=== PATIENT | male | born 2000 | race Caucasian/White ===

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

== ENCOUNTER 2021-06-25 17:48 | Emergency (ER) | payer SELFPAY ==
[2021-06-25 19:42] LABS: HEMOGLOBIN 15.1 gm/dl (14.0-17.5); RED BLOOD COUNT 4.85 M/UL (4.20-5.50); WHITE BLOOD COUNT 8.1 K/UL (4.5-11.0)
[2021-06-25 20:08] LABS: BUN/CREATININE RATIO 15 (0-10)
[2021-06-25] MEDS ORDERED: BROMFED DM COU473 ML PO (20:58)
== END 2021-06-25 21:33 | disposition home or self-care (01) ==
LOC: ER1 17:48
PROVIDERS: Nurse Practitioner
DX: J06.9 Acute upper respiratory infection, unspecified (principal); Z20.822 Contact with and (suspected) exposure to COVID-19; F17.210 Nicotine dependence, cigarettes, uncomplicated
CPT/HCPCS: 0240U; 71045; 80053; 81001; 85025; 86403; 87081; 87880; 99283

== ENCOUNTER 2021-08-13 17:41 | Emergency (ER) | payer SELFPAY ==
[~2021-08-13 17:41] MED LIST: BROMFED DM COU473 ML PO
[2021-08-13 18:29] LABS: HEMOGLOBIN 16.5 gm/dl (14.0-17.5); RED BLOOD COUNT 5.26 M/UL (4.20-5.50); WHITE BLOOD COUNT 5.8 K/UL (4.5-11.0)
[2021-08-13 18:48] LABS: BUN/CREATININE RATIO 9 (0-10)
[2021-08-13] MEDS ORDERED: OMEPRAZOLE20 M1 PO (19:58)
[2021-08-13] MEDS ORDERED: ONDANSETRON ODT4 MG SL (19:58)
== END 2021-08-13 20:13 | disposition home or self-care (01) ==
LOC: ER1 17:41
DX: S39.012A Strain of muscle, fascia and tendon of lower back, initial encounter (principal); R10.12 Left upper quadrant pain; R11.2 Nausea with vomiting, unspecified; R19.7 Diarrhea, unspecified; K21.9 Gastro-esophageal reflux disease without esophagitis; X58.XXXA Exposure to other specified factors, initial encounter
CPT/HCPCS: 80053; 81001; 83690; 85025; 96361; 96374; 96375; 99284; C9113; J1885; J2405